=== PATIENT | female | born 1985 | race Caucasian/White ===

== ENCOUNTER 2020-02-26 04:03 | Outpatient (CLI) | payer BC ==
[2020-02-26 04:32] LABS: APPEARANCE,URINE CLOUDY; BILIRUBIN,URINE NEGATIVE (NEGATIVE); COLOR,URINE YELLOW; GLUCOSE, URINE NEGATIVE (NEGATIVE); KETONES,URINE NEGATIVE (NEGATIVE); LEUKOCYTE ESTERASE,URINE SMALL (NEGATIVE); NITRITE,URINE NEGATIVE (NEGATIVE); PROTEIN,URINE 30 mg/dL (NEGATIVE); URINE SPECIFIC GRAVITY 1.028; UROBILINOGEN,URINE NEGATIVE mg/dL (<2.0)
[2020-02-26 04:49] LABS: URINE AMPHETAMINES SCREEN NEGATIVE; URINE BARBITURATES SCREEN NEGATIVE; URINE BENZODIAZEPINES SCREEN NEGATIVE; URINE COCAINE SCREEN NEGATIVE; URINE MARIJUANA (THC) SCREEN NEGATIVE; URINE METHADONE SCREEN NEGATIVE; URINE PHENCYCLIDINE SCREEN NEGATIVE
== END 2020-02-26 06:07 | disposition home or self-care (01) ==
LOC: LC 04:03
PROVIDERS: ATTEND Obstetrics & Gynecology
DX: O48.0 Post-term pregnancy (principal); Z3A.40 40 weeks gestation of pregnancy
CPT/HCPCS: 59025; 80307; 81005

== ENCOUNTER 2020-02-26 10:33 | Inpatient (IN) | payer BC ==
[2020-02-26] MEDS ORDERED: MISOPROSTOL 0.2 MG TABLET ONE (10:35)
[2020-02-26] MEDS ORDERED: OXYTOCIN/0.9 % SODIUM CHLORIDE 30 UNIT/500 ML RTUINJ ONE (10:35)
[2020-02-26] MEDS ORDERED: OXYTOCIN 10 UNIT/ML VIAL ONE (10:35)
[2020-02-26] MEDS ORDERED: LIDOCAINE 1% INJ-PF (10 MG/ML) 30 ML SDV ONE (10:35)
[2020-02-26] MEDS ORDERED: RINGERS SOLUTION,LACTATED 1,000 ML IV ONE (10:42)
--- NOTE | 2020-02-26 11:56 | Admission Physical ---
Datetime Report Generated by CPN: 02/26/2020 11:55 CURRENT ADMISSION Chief Complaint: Uterine Contractions; Sent from OB Office for Evaluation and Treatment - Please Specify Chief Complaint Other: seen by Afua James CNM at [facility] was 6cm with BBOW Indication for Induction: Not Applicable Admit Impression : Postterm, Intrauterine ; Active Labor Admit Plan: Admit to Unit; Initiate Labor Protocol Admit Plan- Other: labor B+ Rubella Imm GBS neg ALLERGIES Medication Allergies: No Medication Allergies: No Known Allergies (04/27/2016) Latex: No Latex Allergies OBSTETRICAL HISTORY EDC: 02/22/2020 00:00 : 2 Para: 1 Term: 1 : 0 SAB: 0 IAB: 0 Ectopic: 0 Livin Cesareans: 0 VBACs: 0 Multiple Births: 0 Gestational Diabetes: No Rh Sensitization: No Incompetent Cervix: No JOSE G: No Infertility: No ART Treatment: No Uterine Anomaly: No IUGR: No Hx Previous C/S: No Macrosomia: No Hx Loss/Stillborn: No PIH: No Hx : No Placenta Previa/Abruption: No Depression/PP Depression: Yes PTL/PROM: No Post Hemorrhage: No Current Procedures: Ultrasound; NST Obstetrical History Comments: G2-Current SEE RECORDS Alcohol: No Marijuana : No Cocaine: No Other Illicit Drugs: No Cigarettes: Never Smoker. 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 Surgery: No Heart Disease: No Hosp/Surgery: No Autoimmune Disorder: No Anesthetic Complications: No Kidney Disease: No Abnormal Pap Smear: No Neuro/Epilepsy: No Psychiatric Disorders: Yes Other Medical Diseases: No Hepatitis/Liver Disease: No Significant Family History: No Varicosities/Phlebitis: No Trauma/Violence : No Thyroid Dysfunction: No Medical History Comments: HX of anxiety INFECTIOUS HISTORY Gonorrhea: No Genital Herpes: No Chlamydia: No Tuberculosis: No Syphilis: No Hepatitis: No HIV/AIDS Exposure: No Rash or Viral Illness: No HPV: No PHYSICAL EXAM General: Normal HEENT: Normal Neurologic: Normal Thyroid: Deferred Heart: Normal Lungs: Normal Breast: Deferred Back: Deferred Abdomen: Normal Genitourinary Exam: Normal Extremities: Normal DTRs: Deferred Pelvic Type: Adequate Physical Exam Comments: urge to push Vital Signs: Reviewed VAGINAL EXAM Dilatation: 10 Effacement: 100 Station: -2 MEMBRANES Membranes: Intact FETUS A EGA: 40.4 Monitoring: External US FHR- Baseline: 140 Variability: Moderate 6-25bpm Accelerations: 15X15 Decelerations: None Presentation: Vertex Admit Comment: prepare for delivery PLANS FOR LABOR AND DELIVERY Labor and Delivery: None Pain Management: Medications; Epidural Feeding Preference: Breast Benefit of Breast Feed Discussed: Yes Circumcision: Yes INFORMED CONSENT Assignment: Karrie Hawthorne MD Signature: with User ID: Barbie : with User ID: Barbie
--- NOTE | 2020-02-26 12:01 | Warning Signs in Babies ---
VOD Warning Signs Datetime Report Generated by [facility]: 02/26/2020 12:01 VOD#[id number] -Warning Signs in Babies: Needs to be viewed. (02/26/2020 04:29:Jacki Guzman RN)
[2020-02-26] MEDS ORDERED: BENZOCAINE/MENTHOL AEROSOL SPRAY 56 ML TOP PRN (12:19)
[2020-02-26] MEDS ORDERED: PROMETHAZINE HCL 25 MG TABLET PO PRN (12:19)
[2020-02-26] MEDS ORDERED: MAGNESIUM HYDROXIDE SUSP 30 ML UDCUP PO PRN (12:19)
[2020-02-26] MEDS ORDERED: ZOLPIDEM TARTRATE 5 MG TABLET PO PRN (12:19)
[2020-02-26] MEDS ORDERED: PROMETHAZINE HCL INJ 25 MG/1 ML VIAL IV PRN (12:19)
[2020-02-26] MEDS ORDERED: DIPH/PERTUSS(ACELL)/TETANUS VAC/PF 0.5 ML SYR (>=10YO) IM PRN (12:19)
[2020-02-26] MEDS ORDERED: OXYTOCIN/0.9 % SODIUM CHLORIDE 30 UNIT/500 ML RTUINJ IV PRN (12:19)
[2020-02-26] MEDS ORDERED: GLYCERIN/WITCH HAZEL LEAF 1 EACH MED..WIPE TP PRN (12:19)
[2020-02-26] MEDS ORDERED: MEASLES,MUMPS&RUBELLA VACC/PF 0.5 ML VIAL SUBCUT PRN (12:19)
[2020-02-26] MEDS ORDERED: DIBUCAINE 1% OINTMENT 28 GM TP PRN (12:19)
[2020-02-26] MEDS ORDERED: DIPHENHYDRAMINE HCL 25 MG CAPSULE PO PRN (12:19)
--- NOTE | 2020-02-26 13:09 | Delivery Summary ---
Del Sum A-C Datetime Report Generated by CPN: 02/26/2020 13:08 DELIVERY PERSONNEL DELIVERY PERSONNEL: [id number] Delivery Doctor:: Elana Aldrich CNM Labor and Delivery Nurse:: Jacki Guzman RNcertified ski patroller Nurse:: JESSICA Falk Nursery Nurse:: Desiree Oliveira RN Erosion Control Specialist/CABLE ARMORER: Alina Corral, [employer] MATERNAL INFORMATION Delivery Anesthesia: None Medications After Delivery: Pitocin 30 Units in 500ml NS/D5W Maternal Complications: None Provider Comments: Progressed quickly to 9cm after arrival to unit, Arom at Complete dilation, light meconium noted. SVDVM over 2*perineal lac OA to ROAl, shoulders delivered easily. Infant vigorous, to maternal abd, cord cut after 2 min, clamped x 2, cut per FOB. Cord blood collected, placenta del spont via diaz. Bleeding stabilized, perineal lac repaired as above. Mother and stable at this time. LABOR SUMMARY EDC: 02/22/2020 00:00 No. Babies in Womb: 1 Attempted: No Labor Anesthesia: None LABOR INFORMATION Reason for Induction: Not Applicable Onset of Labor: 02/26/2020 05:00 Complete Dilatation: 02/26/2020 11:03 Oxytocin: N/A Group B Beta Strep: Negative Antibiotics # of Doses: 0 Steroids Given: None Reason Steroids Not Administered: Not Applicable MEMBRANES Membranes Rupture Method: Artificial Rupture of Membranes: 02/26/2020 11:03 Length of Rupture (hr): 0.37 Amniotic Fluid Color: Light Meconium Amniotic Fluid Amount: Moderate STAGES OF LABOR Stage 1 hr: 6 Stage 1 min: 3 Stage 2 hr: 0 Stage 2 min: 22 Stage 3 hr: 0 Stage 3 min: 6 Total Time in Labor hr: 6 Total Time in Labor min: 31 VAGINAL DELIVERY Laceration #1: Perineal Laceration Extension #1: Second Degree Laceration Repair: Yes Laceration Repair Note: 2.0 chromic, lidocaine used for repair repaired in usual fashion Sponge Count Correct: Yes Sharps Count Correct: Yes CSECTION DELIVERY Primary Indication: N/A Secondary Indication: N/A CSection Incidence: N/A Labor: N/A Elective: N/A CSection Incision: N/A BABY A INFORMATION Infant Delivery Date/Time: 02/26/2020 11:25 Method of Delivery: Vaginal Nurse Controlled Delivery: No Born in Route : No : N/A Forceps: N/A Vacuum Extraction: N/A Shoulder Dystocia : No PRESENTATION/POSITION BABY A Presentation: Cephalic Cephalic Presentation: Vertex Vertex Position: Right Occipital Anterior Breech Presentation: N/A PLACENTA INFORMATION BABY A Placenta Delivery Time : 02/26/2020 11:31 Placenta Method of Delivery: Spontaneous Placenta Status: Delivered SCORES BABY A Heart Rate 1 min: >100 bpm Resp Effort 1 min: Good Cry Reflex Irritability 1 min: Cough or Sneeze or Pulls Away Muscle Tone 1 min: Active Motion Color 1 min: Blue/Pale Resuscitation Effort 1 min: Tactile Stimulation SCORE 1 MIN: 8 Heart Rate 5 min: >100 bpm Resp Effort 5 min: Good Cry Reflex Irritability 5 min: Cough or Sneeze or Pulls Away Muscle Tone 5 min: Active Motion Color 5 min: Body [place], Extremities Blue SCORE 5 MIN: 9 INFORMATION BABY A Gestational Age at Delivery: 40.4 Gestational Status: Full Term- 39- 40.6 Weeks Infant Outcome : Liveborn Infant Condition : Stable Sex: Male IDENTIFICATION BABY A Verification Date/Time: 02/26/2020 12:43 ID Band Number: [id number] Mother's Name Verified: Yes RN Verifying : Ronit GaryADAN Additional Verifying Personnel: Amy Guzman,RN WEIGHT/LENGTH BABY A Birthweight (gm): 4240 Infant Weight (lb): 9 Infant Weight (oz): 6 Infant Length (in): 21.00 Length (cm): 53.34 CORD INFORMATION BABY A No. Cord Vessels: 3 Nuchal Cord : N/A Cord Blood Taken: Yes-For Storage (Mom's Blood type +) Infant Suction: None ASSESSMENT BABY A Complications: None Skin to Skin: Yes Transferred To: Remains with Mother SIGNATURES Assignment: Karrie Hawthorne MD Signature: with User ID: [email or web address] : with User ID: [email or web address] : I was personally available for consultation and serving as supervising physician for the P.
[2020-02-26] MEDS ORDERED: IBUPROFEN 800 MG TABLET ONE (13:40)
[2020-02-26] MEDS: IBUPROFEN 800 MG TABLET PO SCH ×2 (13:44→21:28)
[2020-02-26] MEDS: FERROUS SULFATE 325 MG TABLET PO SCH (17:55)
[2020-02-26] MEDS: DOCUSATE SODIUM 100 MG CAPSULE PO SCH (17:55)
[2020-02-26] MEDS: FAMOTIDINE 20 MG TABLET PO SCH (21:31)
[2020-02-27] MEDS: IBUPROFEN 800 MG TABLET PO SCH ×3 (05:23→22:08)
[2020-02-27 06:20] LABS: HEMATOCRIT 31.8 % (36.0-47.0); MEAN CORPUSCULAR HEMOGLOBIN 32.4 pg (27.0-33.4); MEAN CORPUSCULAR HGB CONC 34.5 g/dL (32.0-36.0); MEAN CORPUSCULAR VOLUME 94 fl (80-97); PLATELET COUNT 189 10^3/uL (150-450); RED BLOOD COUNT 3.38 10^6/uL (3.72-5.28); RED CELL DISTRIBUTION WIDTH 12.4 % (11.5-14.0); WHITE BLOOD COUNT 13.1 10^3/uL (4.0-10.5)
[2020-02-27] MEDS: PRENATAL VITAMIN W DHA CAPSULE PO SCH (09:19)
[2020-02-27] MEDS: SENNOSIDES/DOCUSATE 8.6-50 MG 1 EACH TABLET PO SCH (09:19)
[2020-02-27] MEDS: FAMOTIDINE 20 MG TABLET PO SCH ×2 (09:19→22:08)
[2020-02-27] MEDS: FERROUS SULFATE 325 MG TABLET PO SCH ×2 (09:19→18:15)
[2020-02-27] MEDS: DOCUSATE SODIUM 100 MG CAPSULE PO SCH ×2 (09:19→18:15)
--- NOTE | 2020-02-27 10:15 | PDOC PROGRESS REPORT ---
Subjective-OB Progress Note for:: 02/27/20 Subjective: pt doing well, no concerns. She reports light bleeding, reg diet and voiding without difficulty. Physical Exam (OB) Vital Signs: Temp Pulse Resp BP Pulse Ox 97.2 F 66 16 122/69 99 02/27/20 07:26 02/27/20 07:26 02/27/20 07:26 02/27/20 07:26 02/27/20 07:26 Intake & Output 02/26/20 02/27/20 02/28/20 06:59 06:59 06:59 Intake Total 300 350 Balance 300 350 Weight 105.4 kg - Lochia Lochia Amount: Scant < 10 ml Lochia Color: Rubra/Red - Abdomen Description: Soft Hernia Present: No Fundal Description: Firm, Midline Fundal Height: u/u - u/2 Objective-Diagnostic Laboratory: 02/27/20 05:20 02/26/20 02/27/20 12:57 05:20 WBC 13.1 H RBC 3.38 L Hgb 11.0 L Hct 31.8 L MCV 94 MCH 32.4 MCHC 34.5 RDW 12.4 Plt Count 189 Blood Type B POSITIVE Antibody Screen NEGATIVE Assessment and Plan(PN) - Assessment and Plan (1) Second degree perineal laceration during delivery, delivered Is this a current diagnosis for this admission?: Yes (2) Normal course Is this a current diagnosis for this admission?: Yes (3) Vaginal delivery Is this a current diagnosis for this admission?: Yes - Time Spent with Patient Time with patient: Less than 15 minutes Medications reviewed and adjusted accordingly: Yes - Disposition Anticipated Discharge: Home Within: within 24 hours
[2020-02-28] MEDS: IBUPROFEN 800 MG TABLET PO SCH (05:45)
[2020-02-28 07:47] VITALS: BP 123/62
[2020-02-28] MEDS: PRENATAL VITAMIN W DHA CAPSULE PO SCH (10:19)
[2020-02-28] MEDS: FAMOTIDINE 20 MG TABLET PO SCH (10:19)
[2020-02-28] MEDS: DOCUSATE SODIUM 100 MG CAPSULE PO SCH (10:19)
[2020-02-28] MEDS: FERROUS SULFATE 325 MG TABLET PO SCH (10:19)
[2020-02-28] MEDS: SENNOSIDES/DOCUSATE 8.6-50 MG 1 EACH TABLET PO SCH (10:19)
--- NOTE | 2020-02-28 10:41 | PDOC DISCHARGE SUMMARY ---
Impression - Admit/DC Date/PCP Admission Date/Primary Care Provider: 02/26/20 10:43 LINDA GREENWOOD MD Discharge Date: 02/28/20 - Discharge Diagnosis (1) Second degree perineal laceration during delivery, delivered Is this a current diagnosis for this admission?: Yes (2) Normal course Is this a current diagnosis for this admission?: Yes (3) Vaginal delivery Is this a current diagnosis for this admission?: Yes - Additional Information Resuscitation Status: Full Code Discharge Diet: Regular Discharge Activity: Balance Activity w/Rest, Pelvic Rest Referrals: LINDA GREENWOOD MD [Primary Care Provider] - Prescriptions: Ibuprofen [Motrin 800 mg Tablet] 800 mg PO Q8 #60 tablet Home Medications: Pnv No.95/Ferrous Fum/Folic AC [ Formula Tablet] 1 each PO DAILY 04/27/16 Ibuprofen [Motrin 800 mg Tablet] 800 mg PO Q8 #60 tablet 02/28/20 HPI Gestational Age: 40.4 Reason(s) for Admission: Onset of Labor Procedures: NST Intrapartum Procedure(s): Spontaneous Vaginal Delivery Complication(s): Laceration-Perineal Laceration-Degree: 2nd Results Laboratory Results: WBC 13.1 10^3/uL (4.0-10.5) H 02/27/20 05:20 RBC 3.38 10^6/uL (3.72-5.28) L 02/27/20 05:20 Hgb 11.0 g/dL (12.0-15.5) L 02/27/20 05:20 Hct 31.8 % (36.0-47.0) L 02/27/20 05:20 MCV 94 fl (80-97) 02/27/20 05:20 MCH 32.4 pg (27.0-33.4) 02/27/20 05:20 MCHC 34.5 g/dL (32.0-36.0) 02/27/20 05:20 RDW 12.4 % (11.5-14.0) 02/27/20 05:20 Plt Count 189 10^3/uL (150-450) 02/27/20 05:20 Membranes Rupture NEGATIVE (NEGATIVE) 02/26/20 10:44 Blood Type B POSITIVE 02/26/20 12:57 Antibody Screen NEGATIVE 02/26/20 12:57 Plan Plan of Treatment: f/u at [facility] Time Spent: Less than 30 Minutes
== END 2020-02-28 13:30 | disposition home or self-care (01) | DRG 807 ==
LOC: LC 10:33 → LR 10:43 → 2S 14:11
PROVIDERS: ADMIT Obstetrics & Gynecology; ATTEND Obstetrics & Gynecology
PROC: 10E0XZZ Delivery of Products of Conception, External Approach (ICD-10-PCS; principal; 2020-02-26)
PROC: 0KQM0ZZ Repair Perineum Muscle, Open Approach (ICD-10-PCS; 2020-02-26)
PROC: 10907ZC Drainage of Amniotic Fluid, Therapeutic from Products of Conception, Via Natural or Artificial Opening (ICD-10-PCS; 2020-02-26)
DX: O48.0 Post-term pregnancy (principal); Z37.0 Single live birth; O70.1 Second degree perineal laceration during delivery; Z3A.40 40 weeks gestation of pregnancy
CPT/HCPCS: 36415; 84112; 85027; 86850; 86900; 86901; J2590; J3490